=== PATIENT | male | born 1985 | race Caucasian/White ===

== ENCOUNTER 2017-05-25 10:33 | Emergency (ER) | payer MEDICAID ==
[2017-05-25 10:49] VITALS: BP 147/92
[2017-05-25] MEDS ORDERED: Ketorolac 60 MG/2 ML SDV IM ONE (11:34)
--- NOTE | 2017-05-25 11:38 | EDM.PDOC ---
ED HPI GENERAL MEDICAL PROBLEM - General Chief Complaint: ENT Problem Stated Complaint: EAR & THROAT PAIN Time Seen by Provider: 05/25/17 11:15 Source of Information: Reports: Patient History Limitations: Reports: No Limitations - History of Present Illness INITIAL COMMENTS - FREE TEXT/NARRATIVE: Javier presents today with complaints of sore throat, fever, chills for three days. He reports it is difficulty to swallow due to pain. Pain radiates to left ear. he denies nausea, vomiting or change in bladder and bowel habits. Throat Pain Score (Numeric/FACES): 8 - Related Data Allergies Allergy/AdvReac Type Severity Reaction Status Date / Time No Known Allergies Allergy Verified 05/25/17 10:53 Home Meds: Home Meds NK [No Known Home Meds] 05/25/17 [History] Past Medical History - Past Health History Medical/Surgical History: Denies Medical/Surgical History Social & Family History - Tobacco Use Smoking Status *Q: Never Smoker - Caffeine Use Caffeine Use: Reports: Soda - Recreational Drug Use Recreational Drug Use: No ED ROS ENT - Review of Systems Review Of Systems: See Below Constitutional: Reports: Fever, Chills. Denies: Malaise, Weakness, Fatigue HEENT: Reports: Ear Pain, Throat Pain, Throat Swelling. Denies: Dental Pain, Ear Discharge, Hearing Loss, Nose Pain, Rhinitis, Sinus Problem, Vertigo, Vision Change Respiratory: Denies: Shortness of Breath, Wheezing, Cough, Sputum Cardiovascular: Denies: Chest Pain, Dyspnea on Exertion, Edema, Lightheadedness , Palpitations, Syncope Endocrine: Reports: No Symptoms GI/Abdominal: Reports: No Symptoms : Reports: No Symptoms Musculoskeletal: Reports: No Symptoms Skin: Denies: Bruising, Rash, Erythema, Wound Neurological: Reports: No Symptoms Psychiatric: Reports: No Symptoms Hematologic/Lymphatic: Reports: No Symptoms Immunologic: Reports: No Symptoms ED EXAM, ENT - Physical Exam Exam: See Below Text/Narrative:: Javier is an alert, oriented and pleasant 31 year old male with complaints of fever, chills, sore throat with radiation to left ear for 3 days. He reports difficulty and pain with swallowing. Exam Limited By: No Limitations General Appearance: Alert, WD/WN, Mild Distress Eye Exam: Bilateral Eye: EOMI, PERRL Ears: Normal External Exam, Normal Canal, Hearing Grossly Normal, Normal TMs Nose: Normal Inspection, Normal Mucousa, No Blood Mouth/Throat: Dry Mucous Membrane, Hoarse Voice, Pharyngeal Erythema, Throat Pain, Tonsillar Erythema, Tonsillar Swelling. No: Oral Ulcers, Peritonsillar Mass, Throat Swelling, Tongue Swelling, Tonsillar Exudates, Uvular Deviation, Uvular Edema Head: Atraumatic, Normocephalic Neck: Normal Inspection, Supple, Non-Tender, Full Range of Motion. No: Lymphadenopathy (R), Lymphadenopathy (L) Respiratory/Chest: No Respiratory Distress, Lungs Clear, Normal Breath Sounds, No Accessory Muscle Use, Chest Non-Tender Cardiovascular: Normal Peripheral Pulses, Regular Rate, Rhythm, No Edema, No Murmur, No Rub Back: Normal Inspection, Full Range of Motion. No: CVA Tenderness (R), CVA Tenderness (L) Extremities: Normal Inspection, Normal Range of Motion, Non-Tender, No Pedal Edema, Normal Capillary Refill Neurological: Alert, Oriented, Normal Cognition, Normal Gait, No Motor/Sensory Deficits Psychiatric: Normal Affect, Normal Mood Skin: Warm, Dry, Intact, Normal Color, No Rash Lymphatic: No Adenopathy Course - Vital Signs Last Recorded V/S: Last Vital Signs Temp 37.3 C 05/25/17 10:48 Pulse 89 05/25/17 10:48 Resp 16 05/25/17 10:48 BP 147/92 H 05/25/17 10:48 Pulse Ox 95 05/25/17 10:48 - Orders/Labs/Meds Orders: Active Orders 24 hr Category Date Time Status Acetaminophen/HYDROcodone [Hyden 325-5 MG] Med 05/25/17 11:58 Once 1 tab PO ONETIME ONE Labs: Strep screen positive. Meds: Medications Discontinued Medications Generic Name Dose Route Start Last Admin Trade Name Freq PRN Reason Stop Dose Admin Ketorolac Tromethamine 60 mg 05/25/17 11:34 Toradol IM 05/25/17 11:35 ONETIME ONE Departure - Departure Time of Disposition: 11:58 Disposition: Home, Self-Care 01 Condition: Fair Clinical Impression: Strep pharyngitis - Discharge Information Referrals: PCP,None [Primary Care Provider] - Forms: ED Department Discharge Additional Instructions: You have strep throat. It is best to take antibiotic Penicillin 500mg by mouth three times per day for 10 days. Take ibuprofen 800mg by mouth three times a day as needed for pain. You can also take acetaminophen 1000mg by mouth up to four times a day for pain. Drink plenty of fluids, cool drinks and warm drinks for comfort. Return for worsening, issues or concerns. - My Orders Last 24 Hours: My Active Orders 05/25/17 11:58 Acetaminophen/HYDROcodone [Hyden 325-5 MG] 1 tab PO ONETIME ONE - Assessment/Plan Last 24 Hours: My Active Orders 05/25/17 11:58 Acetaminophen/HYDROcodone [Hyden 325-5 MG] 1 tab PO ONETIME ONE Assessment:: Strep pharyngitis Plan: It is best to take antibiotic Penicillin 500mg by mouth three times per day for 10 days. Take ibuprofen 800mg by mouth three times a day as needed for pain. You can also take acetaminophen 1000mg by mouth up to four times a day for pain. Drink plenty of fluids, cool drinks and warm drinks for comfort. Return for worsening, issues or concerns.
[2017-05-25] MEDS ORDERED: Acetaminophen/HYDROcodone 325-5 MG Tab PO ONE (11:58)
== END 2017-05-25 12:23 | disposition home or self-care (01) ==
LOC: JP.ED 10:33
DX: J02.0 Streptococcal pharyngitis (principal)
CPT/HCPCS: 87430; 96372; 99283; A9270; J1885

== ENCOUNTER 2018-01-16 07:45 | Day surgery (SDC) | payer MEDICAID ==
[2018-01-16] MEDS ORDERED: ceFAZolin 2 GM in Premix Bag 1 BAG IV ONE (08:15)
[2018-01-16] MEDS ORDERED: Acetaminophen 500 MG Tab PO ONE (08:15)
[2018-01-16] MEDS ORDERED: Dextrose 5%-Lactated Ringers 1,000 ML IV SCH (08:15)
[2018-01-16] MEDS ORDERED: Bupivacaine 0.5% 50 ML MDV ONE (09:09)
[2018-01-16] MEDS ORDERED: Lidocaine 1% with EPINEPHrine 1:100,000 50 ML MDV ONE (09:09)
[2018-01-16] MEDS ORDERED: Midazolam 1 MG/ML 2 ML SDV ONE (09:45)
[2018-01-16] MEDS ORDERED: Propofol 200 MG/20 ML SDV ONE (09:45)
[2018-01-16] MEDS ORDERED: fentaNYL 100 MCG/2 ML SDV ONE (09:45)
[2018-01-16 11:54] VITALS: BP 120/74
--- NOTE | 2018-01-18 15:14 | OR ---
DATE OF PROCEDURE: 01/16/2018 PREOPERATIVE DIAGNOSIS: Painful lipomas, abdominal wall x3. POSTOPERATIVE DIAGNOSIS: Painful lipomas, abdominal wall x3. PROCEDURE PERFORMED: 1. Excision of subfascial lipoma, left lateral abdominal wall (46916). 2. Resection of subfascial lipoma, anterior abdominal wall (44576). 3. Excision of subfascial lipoma, right lateral abdominal wall (88607). ANESTHESIA: Local plus IV sedation. INDICATIONS FOR PROCEDURE: This is a 32-year-old presenting with 3 painful soft tissue masses clinically which appeared to be lipomas. The plan is to proceed with excision of these. Potential risks of the procedure including bleeding, infection, possible recurrence of the lipomas over time were reviewed and the patient wishes to proceed. DESCRIPTION OF PROCEDURE: The patient was taken to the operating room and placed in supine position. The area of concern had been marked out preoperatively. IV sedation was administered, after which the abdomen was prepped and draped. All 3 of the lipomas were located in the subfascial location close to the level of Italo's fascia and more or less flush with external oblique or rectus sheath fascia. In each case, transversely oriented incisions were made, carried down through the skin and subcutaneous tissue and through the Italo's fascia and the lipoma was then delivered intact with a combination of blunt cautery and sharp dissection. The lipoma in the left abdomen was 4.0 cm. The anterior abdominal wall lipoma was 2.8 cm and the right abdominal lipoma was 2.2 cm. Each of these were inspected for any bleeding cauterized and closed with 3-0 and 4-0 Vicryl stitch deep and then a 4-0 Vicryl subcuticular stitch. Dressings were applied. The patient was taken to the recovery room in satisfactory condition. Kyle Lawrence MD /[id number]
== END 2018-01-16 11:50 | disposition home or self-care (01) ==
LOC: JP.SDS 07:45
PROVIDERS: ATTEND Surgery
DX: D17.1 Benign lipomatous neoplasm of skin and subcutaneous tissue of trunk (principal)
CPT/HCPCS: 22902; 22903; A9270; J0690; J2250; J2704; J3010; J7042; 88304

== ENCOUNTER 2018-12-18 12:54 | Day surgery (SDC) | payer MEDICAID ==
[2018-12-18] MEDS: Dextrose 5%-Lactated Ringers 1,000 ML IV SCH ×2 (13:13→22:24)
[2018-12-18] MEDS ORDERED: Bupivacaine 0.5% 50 ML MDV ONE (14:20)
[2018-12-18] MEDS ORDERED: Lidocaine 1% with EPINEPHrine 1:100,000 50 ML MDV ONE (14:21)
[2018-12-18] MEDS ORDERED: Rocuronium 50 MG/5 ML Vial ONE (14:26)
[2018-12-18] MEDS ORDERED: Neostigmine Methylsulfate 1 MG/ML 5 ML Syringe ONE (14:26)
[2018-12-18] MEDS ORDERED: fentaNYL 250 MCG/5 ML SDV ONE (14:26)
[2018-12-18] MEDS ORDERED: Dexamethasone 4 MG/ML SDV ONE (14:26)
[2018-12-18] MEDS ORDERED: Propofol 200 MG/20 ML SDV ONE (14:26)
[2018-12-18] MEDS ORDERED: Glycopyrrolate 0.2 MG/ML 5 ML MDV ONE (14:26)
[2018-12-18] MEDS ORDERED: Ondansetron 4 MG/2 ML SDV ONE (14:26)
[2018-12-18] MEDS ORDERED: Succinylcholine 200 MG/10 ML MDV ONE (14:26)
[2018-12-18] MEDS ORDERED: Lactated Ringers 1,000 ML ONE (14:44)
[2018-12-18] MEDS: Ampicillin/Sulbactam Na 3 GM in Sodium Chloride 0.9% 100 ML IV ONE ×2 (14:46→17:21)
[2018-12-18] MEDS ORDERED: Ondansetron 4 MG/2 ML SDV IVPUSH PRN (14:59)
[2018-12-18] MEDS ORDERED: fentaNYL 100 MCG/2 ML SDV IVPUSH PRN (14:59)
[2018-12-18] MEDS ORDERED: Docusate Sodium 100 MG Cap PO PRN (14:59)
[2018-12-18] MEDS ORDERED: Lactated Ringers 1,000 ML IV SCH (15:00)
[2018-12-18] MEDS: Acetaminophen/HYDROcodone 325-5 MG Tab PO PRN (20:26)
[2018-12-18] MEDS: Ampicillin/Sulbactam Na 3 GM in Sodium Chloride 0.9% 100 ML IV SCH (20:27)
[2018-12-19] MEDS: Ampicillin/Sulbactam Na 3 GM in Sodium Chloride 0.9% 100 ML IV SCH ×2 (03:51→08:04)
[2018-12-19 07:06] VITALS: BP 125/71
[2018-12-19] MEDS: Acetaminophen/HYDROcodone 325-5 MG Tab PO PRN (08:09)
--- NOTE | 2018-12-21 08:59 | DISCH ---
FINAL DIAGNOSIS: Perirectal abscess. SECONDARY DIAGNOSES: 1. Obesity. 2. History of lipomas of abdominal wall. OPERATIVE PROCEDURE: Done on 12/18/2018 per Kelvin Shepard MD, incision and drainage of a left-sided perirectal abscess. SUMMARY: This is a 33-year-old presenting with a perirectal abscess in the clinic, and the plan, after initial evaluation, was to proceed with incision and drainage of this in the operating room, which was accomplished per Dr. Shepard. Postoperatively, the patient is really doing well, decreasing the drainage. The dressing will be taken down with the nurse today and will teach his how to pack the wound, and otherwise he will be going home with [place] 5/325, 1-2 tabs q.6 hours p.r.n. He will probably mainly need these prior to dressing changes for a period of time, #40 will be written, and then also Augmentin 875 mg p.o. b.i.d. x5 days. He will be following up with Dr. Shepard this coming 12/23/2018, at 10:00 a.m.
--- NOTE | 2018-12-21 09:14 | OR ---
DATE OF PROCEDURE: 12/18/2018 PREOPERATIVE DIAGNOSIS: Perirectal abscess. POSTOPERATIVE DIAGNOSIS: Perirectal abscess. PROCEDURE: Incision and drainage of perirectal abscess. SURGEON: Kelvin Shepard MD ANESTHESIA: General endotracheal. INDICATION: This 33-year-old male has noted progressively worsening, over several days, pain in his left buttock area. It became so bad today that he could not sit on it. He had a fever yesterday of about 100.5. He has extreme pain with having bowel movements. He came in complaining of hemorrhoids. He was seen in the clinic and found to have a perirectal abscess. He was referred to surgery. I saw him, confirmed the diagnosis, and admitted him to the hospital for incision and drainage of his perirectal abscess. I counseled him for surgery, including the risk of developing a fistula, and he gave his informed consent to proceed. DESCRIPTION OF PROCEDURE: After adequate general endotracheal anesthesia was obtained, the patient was placed in the saud-knife position. His anal and perianal areas were prepped and draped in the usual sterile fashion. A needle was introduced into the fluctuant area and aspirated purulent material. This was sent for Gram stain and culture. A radial elliptical incision was made, releasing copious quantities of foul- smelling purulent material. We debrided the area sharply and then irrigated it copiously with saline and suctioned it dry. We then packed the incision after obtaining hemostasis with electrocautery with 1 inch iodoform gauze. A sterile dressing was applied. He was placed supine. The anesthesia was reversed. He was extubated and brought to recovery room in a good condition. Kelvin Shepard MD /[id number] MTDD
== END 2018-12-19 10:17 | disposition home or self-care (01) ==
LOC: JP.SDS 12:54 → JP.MS 14:59 → JP.SDS 12-19 10:17
PROVIDERS: ATTEND Surgery
DX: K61.1 Rectal abscess (principal); E66.01 Morbid (severe) obesity due to excess calories; Z68.34 Body mass index [BMI] 34.0-34.9, adult; Z86.018 Personal history of other benign neoplasm
CPT/HCPCS: 36415; 80048; 85027; 87070; 87075; 87077; 87186; 87205; 88304; A9270-GY; J0295; J0330; J1100; J2405; J2704; J2710; J3010; J3490; J7030; J7042; J7120

== ENCOUNTER 2019-05-25 11:28 | Day surgery (SDC) | payer MEDICAID, OTHER ==
[2019-05-25] MEDS ORDERED: Bupivacaine 0.5%/EPINEPHrine 1:200,000 50 ML MDV ONE (11:36)
[2019-05-25] MEDS ORDERED: Dextrose 5%-Lactated Ringers 1,000 ML IV SCH (12:15)
[2019-05-25] MEDS ORDERED: Meropenem 500 MG in Sodium Chloride 0.9% 50 ML IV ONE (13:00)
[2019-05-25] MEDS ORDERED: fentaNYL 250 MCG/5 ML SDV ONE (13:43)
[2019-05-25] MEDS ORDERED: Rocuronium 50 MG/5 ML Vial ONE (13:44)
[2019-05-25] MEDS ORDERED: Succinylcholine 200 MG/10 ML MDV ONE (13:44)
[2019-05-25] MEDS ORDERED: Dexamethasone 4 MG/ML SDV ONE (13:44)
[2019-05-25] MEDS ORDERED: Propofol 200 MG/20 ML SDV ONE (13:44)
[2019-05-25] MEDS ORDERED: Ondansetron 4 MG/2 ML SDV ONE (13:44)
[2019-05-25] MEDS ORDERED: Hydrogen Peroxide 3% Top Soln 240 ML Bottle ONE (14:05)
[2019-05-25 15:35] VITALS: BP 122/89; PULSE 91
--- NOTE | 2019-05-29 09:07 | OR ---
DATE OF PROCEDURE: 05/25/2019 SURGEON: Kyle Lawrence MD PREOPERATIVE DIAGNOSIS: Perirectal abscess. POSTOPERATIVE DIAGNOSIS: Left intramuscular perirectal abscess. OPERATIVE PROCEDURE: Incision and drainage of left-sided intramuscular perirectal abscess (53802). ANESTHESIA: General. INDICATION FOR PROCEDURE: This is a 33-year-old presenting with recurrent perirectal abscess that appears to be drained several months ago and presents now in the same location. Up until recently, he did not have any signs of recurrence or significant symptoms in the area. Plan is to proceed with incision and drainage. We will also be looking for any identifiable fistula given the clinical presentation. The potential risks of the procedure including bleeding, infection, possible injury to the sphincter muscle, as well as possible recurrence of the process over time were reviewed, and he wishes to proceed. DETAILS OF PROCEDURE: The patient was taken to the operating room and after general endotracheal anesthesia was induced, he was converted to a lithotomy position and perianal prep performed. The previous left-sided incision was then reused. An ellipse of the skin in that area was made to allow a more adequate drainage. There was quite a bit of scaring in this area. We did encounter some purulent material. Cultures were obtained, and areas of some loculations broken up digitally. This abscess extended upward between the external sphincter and levator muscles on the left lateral side. Once this area was irrigated out, no further purulence was noted. A probe was placed into the area with a finger in the rectal area, and the area of fistula could not be identified by that means. Next we then obtained some hydrogen peroxide and injected that into that area occluding the syringe at the apex of the abscess cavity and with a speculum in the rectum. Again, no bubbles could be seen coming into the rectum, so at least at this point we are not able to confirm the fistula. The area was anesthetized with 0.5% Marcaine, and then packed with iodoform gauze. A drain will be left in place and we will see him back in the clinic tomorrow. The patient was taken to the recovery room in satisfactory condition. yKle Lawrence MD /[id number]
== END 2019-05-25 15:39 | disposition home or self-care (01) ==
LOC: JP.SDS 11:28
PROVIDERS: ATTEND Surgery
DX: K61.1 Rectal abscess (principal); E66.01 Morbid (severe) obesity due to excess calories; Z68.41 Body mass index [BMI] 40.0-44.9, adult; Z79.899 Other long term (current) drug therapy
CPT/HCPCS: 36415; 46045; 80048; 85027; 87070; 87075; 87077; 87186; 87205; A9270; J0330; J1100; J2185; J2405; J2704; J3010; J3490; J7042; J7050; 88304

== ENCOUNTER 2021-12-31 17:39 | Emergency (ER) | payer MEDICAID ==
[2021-12-31] MEDS ORDERED: Sodium Chloride 0.9% 10 ML Syringe FLUSH PRN (18:02)
[2021-12-31] MEDS ORDERED: Amiodarone 150 MG/3 ML SDV IVPUSH ONE (18:04)
[2021-12-31] MEDS ORDERED: Dextrose 5% in Water 500 ML ONE (18:28)
[2021-12-31] MEDS ORDERED: Dextrose 5% in Water 500 ML IV SCH (18:30)
[2021-12-31 18:40] LABS: TROPONIN I HIGH SENSITIVITY 7.4 pg/mL (<=60.3)
[2021-12-31] MEDS ORDERED: Calcium Gluconate 10% 1 GM/10 ML SDV IVPUSH ONE (19:21)
[2021-12-31] MEDS ORDERED: Propofol 200 MG/20 ML SDV ONE (19:26)
[2021-12-31 20:17] VITALS: BP 127/81; PULSE 87
== END 2021-12-31 20:44 | disposition home or self-care (01) ==
LOC: JP.ED 17:39
DX: I48.0 Paroxysmal atrial fibrillation (principal); R06.09 Other forms of dyspnea; E66.9 Obesity, unspecified; Z68.42 Body mass index [BMI] 45.0-49.9, adult
CPT/HCPCS: 36415; 71045; 71045-26; 80053; 82330; 83880; 84443; 84484; 85025; 85610; 85730; 86140; 92960; 93005; 93010; 96365; 96375; 96376; 99283; 99285-25; J0282; J0610; J2704; J3490; J7060

== ENCOUNTER 2022-09-28 10:48 | Emergency (ER) | payer MEDICAID ==
[2022-09-28 11:08] VITALS: PULSE 82
[2022-09-28 12:04] LABS: TROPONIN I HIGH SENSITIVITY 18.9 pg/mL (<=60.3)
[2022-09-28 12:36] VITALS: BP 157/90
== END 2022-09-28 12:36 | disposition home or self-care (01) ==
LOC: JP.ED 10:48
DX: I49.3 Ventricular premature depolarization (principal); E66.9 Obesity, unspecified; Z68.42 Body mass index [BMI] 45.0-49.9, adult
CPT/HCPCS: 36415; 80048; 84443; 84484; 85025; 85379; 93005; 99285